=== PATIENT | male | born 1965 | race Caucasian/White ===

== ENCOUNTER 2017-01-24 11:06 | Observation (INO) | payer MEDICAID ==
[~2017-01-24] VITALS: Ht 185.4 cm; Wt 90.7 kg
[2017-01-24 11:57] LABS: Basophils # (auto) 0 uL; Basophils % (auto) 0.4 % (0.0-2.0); Eosinophils # (auto) 0.1 uL; Eosinophils % (auto) 1.2 % (0.0-7.0); Hematocrit 46.1 % (41.0-53.0); Hemoglobin 15.6 g/dL (13.5-17.5); Lymphocytes # (auto) 1.5 uL; Lymphocytes % (auto) 13.7 % (10.0-50.0); Mean Corpuscular Hemoglobin 31.1 pg (28.0-32.0); Mean Corpuscular Hgb Conc. 33.7 g/dL (32.0-36.0); Mean Corpuscular Volume 92.2 fL (80.0-100.0); Mean Platelet Volume 7.6 fL (6.9-10.8); Monocytes % (auto) 9.6 % (0.0-12.0); Neutrophils # (auto) 8.2 uL; Neutrophils % (auto) 75.1 % (37.0-80.0); Nucleated Red Blood Cells % 0.1 %; Platelet Count (auto) 249 10^3/uL (140-450); Red Cell Distribution Width 13.2 % (11.8-14.3); White Blood Cell 10.9 10^3/uL (4.4-10.8)
[2017-01-24 12:30] LABS: Albumin 3.7 g/dL (3.4-5.0); Alkaline Phosphatase 109 U/L (45-117); Anion Gap 8 (5-15); Aspartate Aminotransferase 53 U/L (15-37); BUN/Creatinine Ratio 12.2; Bilirubin, Total 0.4 mg/dL (0.2-1.0); Blood Urea Nitrogen 12 mg/dL (7-18); Calcium 8.8 mg/dL (8.5-10.1); Carbon Dioxide 28 mmol/L (21-32); Chloride 98 mmol/L (98-107); GFR African American 103 mL/min; GFR Non-African American 85 mL/min; Glucose 96 mg/dL (74-106); Magnesium 2.5 mg/dL (1.6-2.6); Potassium 3.8 mmol/L (3.5-5.1); Sodium 134 mmol/L (136-145)
[2017-01-24] MEDS ORDERED: ONDANSETRON HCL 4 MG/2 ML VIAL IV ONE (12:45)
[2017-01-24] MEDS ORDERED: ASPirin-EC 81 mg tab PO ONE (12:45)
[2017-01-24] MEDS ORDERED: MORPHINE SULF INJ 2 MG/ML SYRINGE 1ML IV ONE (12:45)
[2017-01-24] MEDS ORDERED: FLUO20CA90 (13:02)
[2017-01-24] MEDS ORDERED: DIPH50CA (13:02)
[2017-01-24 14:03] LABS: INR 0.92 (0.9-1.15); Partial Thromboplastin Time 26.4 sec (22.64-33.71)
[2017-01-24] MEDS ORDERED: IOHEXOL 350 MG/ML 100ML IJ ONE (15:16)
[2017-01-24 15:17] LABS: B-Type Natriuretic Peptide 7.32 pg/mL (0-100)
[2017-01-24 15:19] LABS: Temperature: 24.3 C (20.0-25.0)
[2017-01-24 15:42] VITALS: BP 155/92
[2017-01-24] MEDS ORDERED: SODIUM CHLORIDE 0.9% 1,000 ML IV SCH (17:08)
[2017-01-24] MEDS ORDERED: MORPHINE SULF INJ 2 MG/ML SYRINGE 1ML IV PRN ×3 (17:15)
[2017-01-24] MEDS ORDERED: LACTULOSE 20Gm/30ML SOLN PO PRN (17:15)
[2017-01-24] MEDS ORDERED: PROMETHAZINE HCL 25 MG/ML 1ML IV PRN (17:15)
[2017-01-24] MEDS ORDERED: TEMAZEPAM 15 MG CAP PO PRN (17:15)
[2017-01-24] MEDS ORDERED: LORazepam 0.5 MG TAB PO PRN (17:15)
[2017-01-24] MEDS ORDERED: NITROGLYCERIN 0.4 MG SL TAB SL PRN (17:15)
[2017-01-24] MEDS ORDERED: ONDANSETRON HCL 4 MG/2 ML VIAL ONE (17:23)
[2017-01-24] MEDS ORDERED: METOPROLOL TARTRATE 25 MG TAB PO SCH (22:00)
[2017-01-24] MEDS ORDERED: FAMOTIDINE 20 MG TAB PO SCH (22:00)
[2017-01-25] MEDS ORDERED: ENALAPRIL MALEATE 10 MG TAB PO SCH (10:00)
[2017-01-25] MEDS ORDERED: ASPirin 81 mg TAB PO SCH (10:00)
[2017-01-25] MEDS ORDERED: NITROGLYCERIN 0.2MG/HR TOPICAL PATCH TD SCH (10:00)
[2017-01-29 11:53] LABS: Hepatitis B Surface Antibody Positive
== END 2017-01-24 17:56 | disposition left against medical advice (07) | DRG 203 ==
LOC: ER 11:06 → OVERFLOW 12:30 → ER 17:56
PROVIDERS: ADMIT Family Medicine; ATTEND Family Medicine
DX: R07.2 Precordial pain (principal); E87.1 Hypo-osmolality and hyponatremia; I10 Essential (primary) hypertension; R11.2 Nausea with vomiting, unspecified; M54.5 Low back pain; F17.210 Nicotine dependence, cigarettes, uncomplicated; R79.1 Abnormal coagulation profile; R79.89 Other specified abnormal findings of blood chemistry; M19.90 Unspecified osteoarthritis, unspecified site; B19.20 Unspecified viral hepatitis C without hepatic coma; Z82.49 Family history of ischemic heart disease and other diseases of the circulatory system
CPT/HCPCS: 36415; 71020; 71275; 72100; 76705; 80053; 82550; 83735; 83880; 84443; 84484; 85025; 85379; 85610; 85730; 86704; 86706; 86708; 86803; 87340; 93005; 96374; 96375; 99285; G0378; J2270; J2405; Q9967

== ENCOUNTER 2017-03-02 13:53 | Emergency (ER) | payer MEDICAID ==
[~2017-03-02] VITALS: Ht 182.9 cm; Wt 90.7 kg
[~2017-03-02 13:53] MED LIST: DIPH50CA; FLUO20CA90
[2017-03-02 14:24] VITALS: BP 164/97
== END 2017-03-02 14:42 | disposition left against medical advice (07) ==
LOC: ER 13:53
DX: N50.812 Left testicular pain (principal); Z53.21 Procedure and treatment not carried out due to patient leaving prior to being seen by health care provider

== ENCOUNTER 2017-03-07 17:55 | Emergency (ER) | payer MEDICAID | END 2017-03-07 19:06 | disposition left against medical advice (07) | LOC: ER 17:59 | DX: N50.812 Left testicular pain (principal); Z53.21 Procedure and treatment not carried out due to patient leaving prior to being seen by health care provider ==

== ENCOUNTER 2019-03-15 00:31 | Emergency (ER) | payer MEDICAID, OTHER ==
[~2019-03-15] VITALS: Ht 185.4 cm; Wt 102.1 kg
[2019-03-15 01:03] VITALS: BP 152/90
== END 2019-03-15 04:41 | disposition home or self-care (01) ==
LOC: EEVIPCON 00:31 → ER 00:31
DX: S00.83XA Contusion of other part of head, initial encounter (principal); S20.219A Contusion of unspecified front wall of thorax, initial encounter; S89.91XA Unspecified injury of right lower leg, initial encounter; F11.10 Opioid abuse, uncomplicated; I10 Essential (primary) hypertension; F17.210 Nicotine dependence, cigarettes, uncomplicated; Z79.899 Other long term (current) drug therapy; X58.XXXA Exposure to other specified factors, initial encounter; Y93.89 Activity, other specified; Y92.89 Other specified places as the place of occurrence of the external cause; Y99.8 Other external cause status
CPT/HCPCS: 70450; 71101